=== PATIENT | male | born 1940 | race Caucasian/White ===

== ENCOUNTER 2019-02-27 08:02 | Day surgery (SDC) | payer OTHER ==
[~2019-02-27] VITALS: Ht 177.8 cm; Wt 70.6 kg
[2019-02-27] VITALS (7 sets, daily range): BP systolic 106–132; BP diastolic 52–80
[~2019-02-27 08:02] MED LIST: ADAL40KI SQ; ASPI-1197 PO; CALC-761 PO; CYAN1000I IM; DEXL30CA3 PO; DIGO125T87 PO; FERR324T4 PO; FOLI0.8C PO; FURO-152 PO; PRED10TA3 PO; SERT100T12 PO; SERT50TA12 PO; SODIUM CHLORIDE 0.9% 1000ML 1,000 ML IV ONE; TYL3 PO; VIT1CAPS28 PO
[2019-02-27] MEDS ORDERED: PROPOFOL 10 MG/ML 20ML VIAL IV ONE ×3 (10:18→10:44)
[2019-02-27] MEDS ORDERED: MEGE400O4 PO (10:24)
[2019-02-27] MEDS ORDERED: RIVA20TA PO (10:24)
[2019-02-27] MEDS ORDERED: GLYC10.7 IH (10:24)
[2019-02-27] MEDS ORDERED: DIVA-76 PO (10:24)
[2019-02-27] MEDS ORDERED: CHOL200074 PO (10:24)
[2019-02-27] MEDS ORDERED: NITROGLYCERIN (10:24)
[2019-02-27] MEDS ORDERED: METO-391 PO (10:24)
[2019-02-27] MEDS ORDERED: PRED5TAB44 PO (10:24)
[2019-02-27] MEDS ORDERED: BUPR-47 PO (10:24)
[2019-02-27] MEDS ORDERED: ISOS40TA16 PO (10:24)
[2019-02-27] MEDS ORDERED: ESOM20CA60 PO (10:24)
[2019-02-27] MEDS ORDERED: NINT100C PO (10:24)
[2019-02-27] MEDS ORDERED: ALBU18HF7 IH (10:24)
[2019-02-27] MEDS ORDERED: PRAV40TA3 PO (10:24)
[2019-02-27] MEDS ORDERED: PHENYLEPHRINE HCL 10 MG/ML 1ML VIAL IV ONE (10:35)
--- NOTE | 2019-02-27 11:28 | NUR ---
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 COUGHING IS NOW SELDOM AT THIS TIME. NO FURTHER ORDERS. OKAY TO DISCHARGE PT.
== END 2019-02-27 11:37 | disposition home or self-care (01) ==
LOC: DAH 08:02 → ENDO 08:02
PROVIDERS: ATTEND Internal Medicine
DX: K57.30 Diverticulosis of large intestine without perforation or abscess without bleeding (principal); K21.0 Gastro-esophageal reflux disease with esophagitis; Z98.0 Intestinal bypass and anastomosis status; K29.50 Unspecified chronic gastritis without bleeding; M06.9 Rheumatoid arthritis, unspecified; K21.9 Gastro-esophageal reflux disease without esophagitis; Z86.73 Personal history of transient ischemic attack (TIA), and cerebral infarction without residual deficits; F41.9 Anxiety disorder, unspecified; I48.91 Unspecified atrial fibrillation; I25.10 Atherosclerotic heart disease of native coronary artery without angina pectoris; E78.5 Hyperlipidemia, unspecified; J84.10 Pulmonary fibrosis, unspecified; Z98.890 Other specified postprocedural states; Z79.899 Other long term (current) drug therapy; Z79.01 Long term (current) use of anticoagulants
CPT/HCPCS: 43239; 45380; 88305; 93005; A4606; J2370; J2704 ×3; J7030

== ENCOUNTER → 2019-05-29 | Outpatient (CLI) | payer OTHER ==
[~2019-05-29] MED LIST changes: +ALBU18HF7 IH; +AMOX-426 PO; -ASPI-1197 PO; +AUD IH; +AZIT500T4 PO; +CHOL200074 PO; +COLE5PAC3 PO; -DEXL30CA3 PO; +ESOM20CA60 PO; -FERR324T4 PO; +GLYC10.7 IH; +ISOS30TA6 PO; +MEGE400O4 PO; +METO-391 PO; +NINT100C PO; +NITRS4 SL; +PRAV40TA3 PO; +RIVA20TA PO; -SERT100T12 PO; -SERT50TA12 PO; -SODIUM CHLORIDE 0.9% 1000ML 1,000 ML IV ONE; -TYL3 PO; -VIT1CAPS28 PO; +VIT1CAPS5 PO
== END | disposition home or self-care (01) ==
LOC: RAH 14:55
PROVIDERS: ATTEND Internal Medicine
DX: J84.10 Pulmonary fibrosis, unspecified (principal); I50.32 Chronic diastolic (congestive) heart failure
CPT/HCPCS: 71046

== ENCOUNTER 2019-12-28 17:27 | Observation (INO) | payer OTHER ==
[~2019-12-28] VITALS: Ht 182.9 cm; Wt 69.9 kg
[~2019-12-28 17:27] MED LIST changes: +DIGO125T71 PO; -DIGO125T87 PO
[2019-12-28] MEDS ORDERED: ASPIRIN 325 MG TABLET ONE (17:55)
[2019-12-28 17:56] LABS: BASOPHILS % (AUTO) 0.3 % (0.0-5.0); EOSINOPHILS % (AUTO) 0.3 % (0.0-8.0); HEMATOCRIT 47.9 % (42-54); LYMPHOCYTES % (AUTO) 18.5 % (21.0-51.0); MEAN CORPUSCULAR HEMOGLOBIN 31.7 pg (27.0-33.0); MEAN CORPUSCULAR HGB CONC 34.2 g/dL (32.0-36.0); MEAN CORPUSCULAR VOLUME 92.5 fL (79-99); MONOCYTES % (AUTO) 5.8 % (3.0-13.0); PLATELET COUNT (AUTO) 299 K/uL (130-400); RED BLOOD CELL COUNT(AUTO) 5.18 MIL/uL (4.50-6.20); RED CELL DISTRIBUTION WIDTH 13.2 % (11.0-15.5); WHITE BLOOD COUNT (AUTO) 18.2 K/uL (4.8-10.8)
[2019-12-28 18:06] LABS: INR 1.4 (0.85-1.15); PARTIAL THROMBOPLASTIN TIME 32.7 SEC (26.3-35.5); PROTHROMBIN TIME 14.5 SEC (9.6-11.6)
[2019-12-28 18:07] LABS: CREATININE 1.1 mg/dL (0.5-1.5); POTASSIUM 3.6 mmol/L (3.5-5.1)
[2019-12-28 18:11] LABS: ALBUMIN 3.3 g/dL (3.5-5.0); BILIRUBIN,TOTAL 0.7 mg/dL (0.2-1.0); TOTAL PROTEIN, SERUM 7.3 g/dL (6.0-8.3)
[2019-12-28 18:34] LABS: B-TYPE NATRIURETIC PEPTIDE 133 pg/mL (0-100)
[2019-12-28] MEDS ORDERED: NITROGLYCERIN 1GM/1 INCH PACKET TD ONE (20:05)
[2019-12-28] MEDS ORDERED: CEFTRIAXONE SODIUM 1 GM ONE (20:05)
[2019-12-28] MEDS ORDERED: AZITHROMYCIN 500MG+NS 250ML 250 ML IV ONE (20:05)
[2019-12-28] MEDS ORDERED: METHYLPREDNISOLONE SOD SUCC 125MG/2ML VIAL ONE (20:05)
[2019-12-28] MEDS ORDERED: ALBUTEROL SULFATE 0.083% 2.5 MG/3 ML INH IH ONE (21:40)
[2019-12-28] MEDS: NITROGLYCERIN 1GM/1 INCH PACKET TD SCH (22:00)
[2019-12-28] MEDS ORDERED: ALBUTEROL SULFATE 0.083% 2.5 MG/3 ML INH IH PRN (22:00)
[2019-12-28] MEDS: METHYLPREDNISOLONE SOD SUCC 125MG/2ML VIAL IVP SCH (22:00)
[2019-12-28] MEDS: SODIUM CHLORIDE 0.9% 1000ML 1,000 ML IV SCH (22:59)
[2019-12-28] MEDS ORDERED: GUAIFENESIN-DM 200/20 MG 10 ML PO PRN (23:00)
[2019-12-28] MEDS ORDERED: ACETAMINOPHEN 325 MG TAB PO PRN ×2 (23:00)
[2019-12-28] MEDS ORDERED: DiphenhydrAMINE HCL 50 MG/ML VIAL IV PRN (23:00)
[2019-12-28] MEDS ORDERED: MAG HYDROX/AL HYDROX/SIMETH ES 30 ML SUSP UDCUP PO PRN (23:00)
[2019-12-28] MEDS ORDERED: DIPHENHYDRAMINE HCL 25 MG CAPSULE PO PRN (23:00)
[2019-12-28] MEDS ORDERED: ONDANSETRON HCL 4 MG/2 ML VIAL IV PRN (23:00)
[2019-12-28] MEDS ORDERED: LIDOCAINE HCL-MPF 1% 2ML VIAL IJ PRN (23:15)
[2019-12-28] MEDS ORDERED: POTASSIUM CHLORIDE 20 MEQ ERTAB PO PRN (23:15)
[2019-12-28] MEDS ORDERED: POTASSIUM CHLORIDE 20MEQ/100ML 100 ML IV PRN (23:15)
[2019-12-28] MEDS ORDERED: POTASSIUM CHLORIDE 10% ELIXIR 20 MEQ/15 ML UDCUP PO PRN (23:15)
[2019-12-29] MEDS ORDERED: SODIUM CHLORIDE 0.9% 1000ML 1,000 ML IV ONE (02:14)
[2019-12-29] MEDS: METHYLPREDNISOLONE SOD SUCC 125MG/2ML VIAL IVP SCH ×4 (04:00→21:25)
[2019-12-29] MEDS: NITROGLYCERIN 1GM/1 INCH PACKET TD SCH ×4 (04:00→22:00)
[2019-12-29 04:14] LABS: BASOPHILS % (AUTO) 0.1 % (0.0-5.0); HEMATOCRIT 42.7 % (42-54); LYMPHOCYTES % (AUTO) 12.3 % (21.0-51.0); MEAN CORPUSCULAR HEMOGLOBIN 31.7 pg (27.0-33.0); MEAN CORPUSCULAR HGB CONC 34.4 g/dL (32.0-36.0); MONOCYTES % (AUTO) 1.3 % (3.0-13.0); NEUTROPHILS % (AUTO) 85.3 % (40.0-77.0); NUCLEATED RED BLOOD CELLS 0.2 % (0.0-0.19); PLATELET COUNT (AUTO) 269 K/uL (130-400); RED BLOOD CELL COUNT(AUTO) 4.64 MIL/uL (4.50-6.20); RED CELL DISTRIBUTION WIDTH 13.1 % (11.0-15.5); WHITE BLOOD COUNT (AUTO) 11.2 K/uL (4.8-10.8)
[2019-12-29 04:28] LABS: CREATININE 0.9 mg/dL (0.5-1.5); POTASSIUM 3.9 mmol/L (3.5-5.1)
[2019-12-29] MEDS: ALBUTEROL SULFATE 0.083% 2.5 MG/3 ML INH IH SCH ×4 (06:01→18:32)
[2019-12-29] MEDS ORDERED: PANTOPRAZOLE SODIUM 40 MG TABLET.DR PO SCH ×2 (07:30→09:00)
--- NOTE | 2019-12-29 07:30 | NUR ---
ARRIVAL TO FLOOR ASSESSMENT ARRIVED VIA STRETCHER TO ROOM 231 FROM ER. PT IS AAOX3 DENIES CP DENIES SOB DENIES NV NO COMPLAINTS RESTING IN BED, TOLERATED MEAL AND MEDS. FAMILY IS AT BEDSIDE. CALL LIGHT WITHIN REACH.
[2019-12-29 07:34] VITALS: BP 106/71
[2019-12-29] MEDS: ISOSORBIDE MONO 30MG TAB SR PO SCH (08:22)
[2019-12-29] MEDS: METOPROLOL TARTRATE 50 MG TAB PO SCH ×2 (08:22→21:22)
[2019-12-29] MEDS: MEGESTROL 400 MG/10 ML UDCUP PO SCH (08:23)
[2019-12-29] MEDS: SODIUM CHLORIDE 0.9% 1000ML 1,000 ML IV SCH (08:40)
--- NOTE | 2019-12-29 11:00 | NUR ---
D NALLELY LINE OUT WORKER ROUNDED SAW PATIENT, ORDERS RECEIVED FOR TELE STATUS.
[2019-12-29 11:37] VITALS: BP 101/60
[2019-12-29 15:28] VITALS: BP 94/55
[2019-12-29] MEDS: RIVAROXABAN 20 MG TABLET PO SCH (16:12)
--- NOTE | 2019-12-29 16:50 | NUR ---
STATUS SITTING UP IN BED, SPOUSE IS AT BEDSIDE NO COMPLAINTS.
--- NOTE | 2019-12-29 17:25 | NUR ---
cm note met with patient and states resides at home with spouse, independent with adls, has a walker he uses at times only. has home o2 concentrator and portable, uses PRN only. dc plan is back to same home setting, states no dc needs. Addendum: 12/29/19 at 1727 by KASSIE RIVERS CM Amended: Links added.
[2019-12-29] MEDS ORDERED: CEFTRIAXONE SODIUM 1 GM IVP SCH ×2 (18:00→20:00)
[2019-12-29 19:00] VITALS: BP 113/65
[2019-12-29] MEDS ORDERED: AZITHROMYCIN 500MG+NS 250ML 250 ML IV SCH (20:00)
[2019-12-29] MEDS ORDERED: ***HM***Pravastatin Sodium 40 MG PO SCH (21:00)
[2019-12-29 23:00] VITALS: BP 124/77
[2019-12-30 03:00] VITALS: BP 137/68
[2019-12-30] MEDS: SODIUM CHLORIDE 0.9% 1000ML 1,000 ML IV SCH (04:00)
[2019-12-30] MEDS: METHYLPREDNISOLONE SOD SUCC 125MG/2ML VIAL IVP SCH ×2 (04:00→10:09)
[2019-12-30] MEDS: NITROGLYCERIN 1GM/1 INCH PACKET TD SCH ×2 (04:00→10:00)
[2019-12-30] MEDS: ALBUTEROL SULFATE 0.083% 2.5 MG/3 ML INH IH SCH ×3 (06:54→14:43)
[2019-12-30 07:32] VITALS: BP 117/68
[2019-12-30] MEDS: ISOSORBIDE MONO 30MG TAB SR PO SCH (07:42)
--- NOTE | 2019-12-30 08:00 | NUR ---
ASSESSMENT PT IS RESTING IN BED, BREATHING PATTERN IS EVEN AND UNLABORED. NO VISIBLE SIGNS OF DISTRESS NOTED AT THIS TIME. AM MEDS GIVEN AND TOLERATED, CALL LIGHT WITHIN REACH.
[2019-12-30] MEDS: MEGESTROL 400 MG/10 ML UDCUP PO SCH (08:28)
[2019-12-30] MEDS: METOPROLOL TARTRATE 50 MG TAB PO SCH (08:28)
[2019-12-30] MEDS ORDERED: DIGOXIN 125 MCG TABLET PO SCH (09:00)
[2019-12-30] MEDS ORDERED: AZITHROMYCIN 250 MG TABLET PO SCH (11:00)
[2019-12-30] MEDS ORDERED: PREDNISONE 20 MG TABLET PO SCH (11:00)
[2019-12-30 11:02] VITALS: BP 103/58
--- NOTE | 2019-12-30 14:00 | NUR ---
CM NOTE discussed dc planning with md, states plan to keep observation until this evening and if stable will dc this evening.
--- NOTE | 2019-12-30 15:13 | NUR ---
PATIENT SHOWERING AT TIME PT PRESENT ON THE FLOOR. TO AMBULATE LATER WITH NURSING STAFF. Addendum: 12/30/19 at 1514 by MIKE CHOWDHURY PT Amended: Links added.
[2019-12-30 15:31] VITALS: BP 100/52
[2019-12-30] MEDS: RIVAROXABAN 20 MG TABLET PO SCH (16:44)
--- NOTE | 2019-12-30 17:40 | NUR ---
DISCHARGE DISCHARGE ORDERS RECEIVED FROM Matias DEL CID MD. PT AND FAMILY VERBALIZE DC INSTRUCTIONS UNDERSTANDING. AGREE TO TAKE MEDICATIONS ORDERED, AGREE TO FOLLOW UP WITH DR DEL CID ON TUESDAY. ALL QUESTIONS ANSWERED, PIV REMOVED CATH TIP INTACT, TELE PACK REMOVED. DOWN VIA WC TO VEHICLE WITH NURSE AIDE AND SPOUSE.
== END 2019-12-30 17:58 | disposition home or self-care (01) ==
LOC: EDH 17:27 → EDHIP 19:43 → 2AH 12-29 06:52
PROVIDERS: ADMIT Internal Medicine; ATTEND Internal Medicine
DX: J96.10 Chronic respiratory failure, unspecified whether with hypoxia or hypercapnia (principal); J44.1 Chronic obstructive pulmonary disease with (acute) exacerbation; I13.0 Hypertensive heart and chronic kidney disease with heart failure and stage 1 through stage 4 chronic kidney disease, or unspecified chronic kidney disease; I50.32 Chronic diastolic (congestive) heart failure; N18.2 Chronic kidney disease, stage 2 (mild); I25.110 Atherosclerotic heart disease of native coronary artery with unstable angina pectoris; G61.81 Chronic inflammatory demyelinating polyneuritis; M06.9 Rheumatoid arthritis, unspecified; K21.9 Gastro-esophageal reflux disease without esophagitis; E87.2 Acidosis; I48.20 Chronic atrial fibrillation, unspecified; F90.9 Attention-deficit hyperactivity disorder, unspecified type; I70.0 Atherosclerosis of aorta; G47.33 Obstructive sleep apnea (adult) (pediatric); F32.1 Major depressive disorder, single episode, moderate; E78.2 Mixed hyperlipidemia; E53.8 Deficiency of other specified B group vitamins; H35.30 Unspecified macular degeneration; E46 Unspecified protein-calorie malnutrition; M16.12 Unilateral primary osteoarthritis, left hip; D50.0 Iron deficiency anemia secondary to blood loss (chronic); D68.69 Other thrombophilia; D63.8 Anemia in other chronic diseases classified elsewhere; N40.1 Benign prostatic hyperplasia with lower urinary tract symptoms; D50.9 Iron deficiency anemia, unspecified; F32.9 Major depressive disorder, single episode, unspecified; J84.10 Pulmonary fibrosis, unspecified; M47.16 Other spondylosis with myelopathy, lumbar region; M05.10 Rheumatoid lung disease with rheumatoid arthritis of unspecified site; M54.16 Radiculopathy, lumbar region; Z99.81 Dependence on supplemental oxygen; Z95.1 Presence of aortocoronary bypass graft; Z93.1 Gastrostomy status; Z90.49 Acquired absence of other specified parts of digestive tract; Z98.61 Coronary angioplasty status; Z90.3 Acquired absence of stomach [part of]; Z79.01 Long term (current) use of anticoagulants; Z79.899 Other long term (current) drug therapy
CPT/HCPCS: 36415 ×2; 71045; 80048; 80053; 80162; 82550; 83605; 83880; 84484 ×3; 85025 ×2; 85610; 85730; 87040 ×2; 93005; 94640 ×8; 94664; 96374; 96375; 96376 ×2; 97116; 97161; 99284; G0378 ×40; G8978; G8979; G8980; G8981; G8982; G8983; J0456; J0696 ×2; J2930 ×6; J7030 ×3